=== PATIENT | male | born 1960 | race Caucasian/White ===

== ENCOUNTER 2016-11-09 09:31 | Emergency (ER) | payer OTHER, MEDICARE ==
[~2016-11-09 09:31] MED LIST: ALPRAZOLAM0.5 M3 PO; ALPRAZOLAM0.5 M4 PO; ATORVASTATIN CA20 MG PO; BENTYL20 M1 PO; CYCLOBENZAPRINE10 M1 PO; Ecotrin PO; FLOMAX0.4 M1 PO; FUROSEMIDE40 M1 PO; GEMFIBROZIL600 MG PO; IBU800 MG PO; KEFLEX500 M1 PO; LOPRESSOR 12.12.5 MG PO; METFORMIN HCL500 M3 PO; MONTELUKAST SOD10 MG PO; MOTRIN800 MG PO; NEXIUM 40MG40 MG PO; OXYCODONE-ACETAMINOP PO; PERCOCET 325 MG1 TA2 PO; PERCOCET 325 MG1 TAB PO; TAMSULOSIN HYD0.4 MG PO
[2016-11-09] MEDS ORDERED: GEMFIBROZIL600 M1 PO (09:47)
[2016-11-09] MEDS ORDERED: METOPROLOL TART25 M1 PO (09:50)
--- NOTE | 2016-11-09 09:54 | ED ANKLE/FOOT INJURY COMPLAINT ---
History of Present Illness General Chief Complaint: Foot or Ankle Injury Stated Complaint: LFT FOOT PAIN/NO KNOWN INJURY Source: patient Exam Limitations: no limitations Vital Signs & Intake/Output Vital Signs & Intake/Output Vital Signs Date Time Temp Pulse Resp B/P B/P Pulse O2 O2 Flow FiO2 Mean Ox Delivery Rate 11/09 0941 98.1 93 18 132/82 95 Room Air Allergies Coded Allergies: NO KNOWN ALLERGIES (07/02/13) Reconcile Medications Furosemide 40 MG TABLET 1 TAB PO DAILY FLUID RETENTION (Reported) Gemfibrozil 600 MG TABLET 1 TAB PO BID CHOLESTEROL (Reported) Indomethacin 25 MG CAPSULE 1 CAP PO TID PRN PAIN/INFLAMMATION with food Metformin HCl 500 MG TABLET 1 TAB PO BID DM (Reported) Metoprolol Tartrate 25 MG TABLET 0.5 TAB PO BID HTN (Reported) Tamsulosin HCl (Flomax) 0.4 MG CAP.ER.24H 1 CAP PO DAILY urinary Triage Note: PT NOTICED LT FOOT PAIN YESTERDAY WHEN HE WOKE UP. STATES IT FELT LIKE A BALL ON THE BOTTOM OF HIS FOOT. NO SWELLING NOTED, DENIES ANY REDNESS, PAINFUL TO WALK ON. Triage Nurses Notes Reviewed? yes Occurred: yesterday Duration: day(s): (2) Timing: no prior history Severity: moderate Severity Numbers: 7 Pain/Injury Location: Left: Foot. Method of Injury: unknown Modifying Factors: Improves With: immobilization. Worsens With: movement. HPI: Patient is a 56-year-old male presenting to the emergency department complaining of left thigh pain that began yesterday. No known injury. Penis sharp and stabbing and is located in the ball of his left foot and also on the dorsum of the left foot. No numbness or tingling. Remote history of breaking that foot in the past. Denies any new footwear. Pain is worse with ambulation and movement. Denies taking any symptoms. Denies any other pain. No calf pain. Denies any leg swelling. Past History Travel History Traveled to [place] past 21 day No Medical History Any Pertinent Medical History? see below for history Neurological: NONE EENT: NONE Cardiovascular: hypertension, hyperlipidemia Respiratory: obstructive sleep apnea Gastrointestinal: NONE Hepatic: NONE Renal: NONE Musculoskeletal: chronic back pain, disk herniation, osteoarthritis Psychiatric: NONE Endocrine: diabetes Blood Disorders: NONE Cancer(s): BREAST BILATERL NIPPLES History of MRSA: No History of VRE: No History of CDIFF: No Surgical History Surgical History: non-contributory Psychosocial History What is your primary language Japanese Tobacco Use: Quit >30 days ago Family History Family History, If Any: MOTHER FHx: heart failure grand mother FHx: heart failure Hx Contributory? No Review of Systems Review of Systems Constitutional: Reports: no symptoms. Comments Review of systems: See HPI, All other systems negative. Constitutional, no chills fever or weight loss HEENT: No visual changes no sore throat no congestion Cardiovascular: No chest pain ,palpitation , orthopnea or ankle swelling Skin, no jaundice no rashes Respiratory: No dyspnea cough sputum GI: No nausea no vomiting Muscle skeletal: no back pain, no neck pain, Neurologic: No numbness no confusion NO MENESES Psych: No stress anxiety or depression,. Heme/endocrine: No bruising no bleeding no polyuria or polydipsia Immunology: No splenectomy or history of AIDS Physical Exam Physical Exam General Appearance: well developed/nourished, no apparent distress, alert, awake , comfortable Leg/Knee/Thigh Left: normal range of motion, normal inspection Comments: Well-developed well-nourished person in no acute distress HEENT:Pupils equally round and reactive to light and accommodation. Nose is atraumatic. Neck: Normal inspection Cardiovascular: Capillary refills intact in lower extremity bilaterally Respiratory: No respiratory distress. Extremity: No edema, no calf tenderness to palpation, normal and equal pulses. Tender to palpation over the dorsum of the left foot, no obvious erythema edema ecchymosis or signs of trauma appreciated. Mild tenderness to palpation over the ball of the left foot swelled. No pain to palpation over the Achilles tendon on the left lower extremity. Able to move all toes without difficulty. No ankle tenderness to palpation, left lower extremity. Neuro: Alert oriented x3, motor sensory normal Skin: No appreciable rash on exposed skin, skin is warm and dry. Psych: Mood and affect is normal, memory and judgment is normal. Progress Differential Diagnosis: gout, fracture, dislocation, sprain, contusion Plan of Care: Orders Procedure Date/time Status XRY-FOOT COMPLETE, LEFT 11/09 953 Active Current Medications Sig/Cesilia Start time Last Medication Dose Stop Time Status Admin Ketorolac 30 MG ONCE ONE 11/09 1000 AC Tromethamine 11/09 1001 (Toradol) Diagnostic Imaging: Viewed by Me: Radiology Read. Discussed w/RAD: Radiology Read. Radiology Impression: PATIENT: RONALDO MONTEZ PRESENT AGE: 56 PATIENT ACCOUNT NO: [id number] : 60 LOCATION: [facility] ORDERING PHYSICIAN: PAO BURKETT SERVICE DATE: 11/09/16 EXAM TYPE: RAD - XRY-FOOT COMPLETE, LEFT EXAMINATION: XR FOOT, LEFT CLINICAL INFORMATION: Pain. Evaluate for stress fracture. COMPARISON: None TECHNIQUE: AP, lateral, and oblique views of the left foot. FINDINGS: Normal bony mineralization. No definite evidence of acute fracture or dislocation. Degenerative changes first MTP joint and multiple interphalangeal joints. Larger osteophyte noted along the lateral aspect base of the proximal phalanx. Linear ossific/calcific density noted dorsal to the interphalangeal joints noted on the lateral radiograph. No definite evidence of stress fracture identified. Inferior and posterior calcaneal spurs. Mild soft tissue swelling noted in the foot. IMPRESSION: 1. No acute osseous abnormality appreciated. If continued clinical concern, MRI may be of greater value. 2. Degenerative changes. 3. Soft tissue swelling. DICTATED BY: ABEL GRANADO MD DATE/TIME DICTATED:11/09/161054 APPLICATIONS SYSTEMS ENGINEER:JOSE DATE/TIME TRANSCRIBED:11/09/161054 CONFIDENTIAL, DO NOT COPY WITHOUT APPROPRIATE AUTHORIZATION. <Electronically signed in Other Vendor System> SIGNED BY: ABEL GRANADO MD 11/09/16 1101 Comments: Patient was medicated with IM Toradol on arrival. He reports it is improving slightly. Still painful to weight-bear. He does not want crutches. He was informed of x-ray results. Considering questionable early gout. No history of similar in the past. Patient denies any alcohol use or excessive seafood intake. Patient will be started on Indocin, Quirino wrap placed. He'll follow-up with orthopedic symptoms persist. Patient nontoxic. Departure Departure Time of Disposition: 1107 Disposition: HOME OR SELF CARE Condition: Stable Clinical Impression Primary Impression: Foot pain Qualifiers: Laterality: left Qualified Code: M79.672 - Pain in left foot Referrals: GALILEO ALVARADO,CAL Betancourt (PCP/Family) MARCELLUS ARELLANO MD Additional Instructions: Follow-up with the orthopedic call to make an appointment. Rest ice and elevate. Take anti-inflammatory as prescribed. Use Quirino wrap for support. Return for worsening symptoms or concerns. Departure Forms: Customer Survey General Discharge Information Prescriptions: Current Visit Scripts Indomethacin 1 CAP PO TID PRN PAIN/INFLAMMATION #15 CAP with food
--- NOTE | 2016-11-09 11:01 | RADIOLOGY REPORT ---
EXAMINATION: XR FOOT, LEFT CLINICAL INFORMATION: Pain. Evaluate for stress fracture. COMPARISON: None TECHNIQUE: AP, lateral, and oblique views of the left foot. FINDINGS: Normal bony mineralization. No definite evidence of acute fracture or dislocation. Degenerative changes first MTP joint and multiple interphalangeal joints. Larger osteophyte noted along the lateral aspect base of the proximal phalanx. Linear ossific/calcific density noted dorsal to the interphalangeal joints noted on the lateral radiograph. No definite evidence of stress fracture identified. Inferior and posterior calcaneal spurs. Mild soft tissue swelling noted in the foot. IMPRESSION: 1. No acute osseous abnormality appreciated. If continued clinical concern, MRI may be of greater value. 2. Degenerative changes. 3. Soft tissue swelling.
[2016-11-09] MEDS ORDERED: INDOMETHACIN25 M1 PO (11:14)
[2016-11-09 11:27] VITALS: BP 130/80
== END 2016-11-09 11:28 ==
LOC: ERH 09:31
DX: M79.672 Pain in left foot (principal)
CPT/HCPCS: 73630-LT; 96372; J1885

== ENCOUNTER 2016-11-21 21:44 | Emergency (ER) | payer OTHER, MEDICARE ==
[~2016-11-21 21:44] MED LIST changes: +GEMFIBROZIL600 M1 PO; +INDOMETHACIN25 M1 PO; +METOPROLOL TART25 M1 PO
--- NOTE | 2016-11-21 21:58 | ED GI/GU/ABDOMINAL COMPLAINT ---
History of Present Illness General Chief Complaint: Abdominal Pain/Flank Pain Stated Complaint: PER PT ?SWOLLEN ESOPHAGUS OR STOMACH BLOCKAGE Source: patient Exam Limitations: no limitations Vital Signs & Intake/Output Vital Signs & Intake/Output Vital Signs Date Time Temp Pulse Resp B/P B/P Pulse O2 O2 Flow FiO2 Mean Ox Delivery Rate 11/22 0002 97.8 89 19 120/79 95 Room Air 11/21 2149 97.0 90 20 118/78 94 Allergies Coded Allergies: NO KNOWN ALLERGIES (07/02/13) Reconcile Medications Furosemide 40 MG TABLET 1 TAB PO DAILY FLUID RETENTION (Reported) Furosemide (Lasix) 40 MG TABLET 1 TAB PO DAILY EDEMA Gemfibrozil 600 MG TABLET 1 TAB PO BID CHOLESTEROL (Reported) Indomethacin 25 MG CAPSULE 1 CAP PO TID PRN PAIN/INFLAMMATION with food Metformin HCl 500 MG TABLET 1 TAB PO BID DM (Reported) Metoprolol Tartrate 25 MG TABLET 0.5 TAB PO BID HTN (Reported) Omeprazole Magnesium (Prilosec Otc) 20 MG TABLET.DR 1 TAB PO DAILY GERD Tamsulosin HCl (Flomax) 0.4 MG CAP.ER.24H 1 CAP PO DAILY urinary Triage Note: PER PT GETTING MORE DIFFICULT TO SWALLOW FOOD X COUPLE OF WEEKS, STOMACH TWITED. NO RESP DISTRESS IN TRIAGE. Triage Nurses Notes Reviewed? yes Duration: constant Timing: recent history Quality/Severity: fullness, moderate Severity Numbers: 5 Radiation: no radiation Activities at Onset: eating HPI: Patient is a 56-year-old male with a past medical history of hypertension hyperlipidemia, chronic back pain, obstructive sleep apnea and bilateral breast cancer with mastectomy in remission who presents to emergency room with concerns of a 6-8 week history of difficulty swallowing solid foods. Patient states that he always needs to drink liquids to avoid choking after ingestion of solid food Patient has had a few episodes of vomiting last episode was yesterday. Patient today was able to tolerate Last bowel movement was today no blood no melena noted. Patient also is concerned of left-sided neck swelling and is concerned of recurrence of cancer. Denies any night sweats fever chills weight loss or difficulty breathing chest pain arm pain jaw pain Patient denies any abdominal pain (ARMIN MCDONALD) Past History Travel History Traveled to [place] past 21 day No Medical History Any Pertinent Medical History? see below for history Neurological: NONE EENT: NONE Cardiovascular: hypertension, hyperlipidemia Respiratory: obstructive sleep apnea Gastrointestinal: NONE Hepatic: NONE Renal: NONE Musculoskeletal: chronic back pain, disk herniation, osteoarthritis Psychiatric: NONE Endocrine: diabetes Blood Disorders: NONE Cancer(s): BREAST BILATERL NIPPLES History of MRSA: No History of VRE: No History of CDIFF: No Surgical History Surgical History: non-contributory Psychosocial History What is your primary language Vietnamese Tobacco Use: Quit >30 days ago Family History Family History, If Any: MOTHER FHx: heart failure grand mother FHx: heart failure Hx Contributory? No (ARMIN MCDONALD) Review of Systems Review of Systems Constitutional: Reports: no symptoms. EENTM: Reports: see HPI. Respiratory: Reports: no symptoms. Cardiovascular: Reports: no symptoms. GI: Reports: see HPI, vomiting. Genitourinary: Reports: no symptoms. Musculoskeletal: Reports: no symptoms. Skin: Reports: no symptoms. Neurological/Psychological: Reports: no symptoms. Hematologic/Endocrine: Reports: no symptoms. Immunologic/Allergic: Reports: no symptoms. All Other Systems: Reviewed and Negative (ARMIN MCDONALD) Physical Exam Physical Exam General Appearance: no apparent distress, obese Gastrointestinal: normal bowel sounds, soft, non-tender, no organomegaly Comments: HEENT: Normal EENT exam, Pharynx normal. No swelling or edema. Neck: Supple, normal inspection, no swelling noted no adenopathy noted full active range of motion noted Back: Nontender, no CVA tenderness. Cardiovascular: Regular rate and rhythms no murmurs rubs or gallops, normal JVP Respiratory: Chest nontender. No respiratory distress.breath sounds clear to auscultation bilaterally Abdomen: Soft, nontender nondistended, no appreciable organomegaly. Normal bowel sounds. No ascites Extremity: No edema, no calf tenderness to palpation, normal and equal pulses. Neuro: Alert oriented x3, motor sensory normal, Skin: No appreciable rash on exposed skin, skin is warm and dry. Psych: Mood and affect is normal, memory and judgment is normal. Core Measures ACS in differential dx? No Severe Sepsis Present: No Septic Shock Present: No (ARMIN MCDONALD) Progress Differential Diagnosis: AAA, AMI, appendicitis, biliary colic, bowel obstruction , colon cancer, cholecystitis, diverticulitis, epididymitis, esophageal varices, gastritis, hepatitis, hernia, hemorrhoids, ischemic bowel, inflamm bowel dis, Stacey-Isrrael tear, orchitis, pancreatitis, prostatitis, peptic ulcer, PUD/GERD, perforated viscous, pyelonephritis, SBO, STD, testicular torsion, ureterolithiasis, urinary retention, urethritis, UTI/pyelo Plan of Care: Orders Procedure Date/time Status LIPASE 11/21 2209 Complete COMPREHENSIVE METABOLIC PANEL 11/21 2209 Complete CBC WITHOUT DIFFERENTIAL 11/21 2209 Complete AMYLASE 11/21 2209 Complete Laboratory Tests 11/21/162219: Anion Gap 11, Estimated GFR 57 L, BUN/Creatinine Ratio 16.2, Glucose 158 H, Calcium 9.1, Total Bilirubin 0.3, AST 17, ALT 27, Alkaline Phosphatase 92, Total Protein 6.9, Albumin 4.3, Globulin 2.6, Albumin/Globulin Ratio 1.7, Amylase 41, Lipase 104, CBC w Diff NO MAN DIFF REQ, RBC 4.74, MCV 89.6, MCH 29.4, RDW 14.6 H, MPV 8.4, Gran % 69.5, Lymphocytes % 19.7 L, Monocytes % 8.7, Eosinophils % 1.9, Basophils % 0.2, Absolute Granulocytes 8.9 H, Absolute Lymphocytes 2.5, Absolute Monocytes 1.1 H, Absolute Eosinophils 0.2, Absolute Basophils 0, PUBS MCHC 32.8 L Patient on initial examination was in no apparent distress and was able to tolerate by mouth water with no dysphasia and no exacerbation of symptoms. Patient had unremarkable CT scan findings Patient was able to tolerate by mouth upon discharge Patient was strongly advised to follow-up with his GI appointment as he had one last week however he stated that he could not make it. Patient also requested refills of his Lasix and which she takes 40 mg once a day. Patient was strongly advised to begin PPI regiment I discussed all blood work and CT scan findings with patient and advised patient to begin drinking plenty of water and soft diet to avoid worsening choking episodes (ARMIN MCDONALD) Diagnostic Imaging: Viewed by Me: CT Scan. Radiology Impression: no acute abnormality, no fracture Initial ED EKG: none (ARMIN MCDONALD) Departure Departure Disposition: HOME OR SELF CARE Condition: Stable Clinical Impression Primary Impression: Dysphagia Referrals: GALILEO ALVARADO,CAL Betancourt (PCP/Family) Additional Instructions: As discussed begin the prescription of Prilosec as directed for your symptoms. Begin the prescription of Lasix Perceptions are waiting a [facility] [place]. Follow-up with your establish gastroenterology appointment with . Begin a soft diet and plenty of water for hydration. If symptoms worsen return to emergency room continue all medications as directed Departure Forms: Customer Survey General Discharge Information Prescriptions: Current Visit Scripts Omeprazole Magnesium (Prilosec Otc) 1 TAB PO DAILY #30 TAB Furosemide (Lasix) 1 TAB PO DAILY #20 TAB (ARMIN MCDONALD) PA/PRACTICAL NURSING INSTRUCTOR Co-Sign Statement Statement: ED Attending supervision documentation- [] I saw and evaluated the patient. I have also reviewed all the pertinent lab results and diagnostic results. I agree with the findings and the plan of care as documented in the PA's/PRACTICAL NURSING INSTRUCTOR's documentation. [x] I have reviewed the ED Record and agree with the PA's/PRACTICAL NURSING INSTRUCTOR's documentation. [] Additions or exceptions (if any) to the PAs/PRACTICAL NURSING INSTRUCTOR's note and plan are summarized below: [] (RAIN ALVARADO,EUGENE Irving)
[2016-11-21 22:33] LABS: ABSOLUTE BASOPHIL COUNT 0 /CUMM (0.0-0.2); ABSOLUTE EOSINOPHIL COUNT 0.2 /CUMM (0.0-0.7); ABSOLUTE GRANULOCYTE CT 8.9 /CUMM (1.4-6.5); ABSOLUTE LYMPH COUNT 2.5 /CUMM (1.2-3.4); ABSOLUTE MONOCYTE COUNT 1.1 /CUMM (0.10-0.60); BASOPHIL % 0.2 % (0.0-2.0); EOSINOPHIL % 1.9 % (0-5); GRANULOCYTE % 69.5 % (42.2-75.2); HEMATOCRIT 42.5 % (42-52); MEAN CORPUSCULAR HGB 29.4 PG (27.0-31.0); MEAN CORPUSCULAR HGB CONC 32.8 G/DL (33.0-37.0); MEAN CORPUSCULAR VOLUME 89.6 FL (80.0-94.0); MEAN PLATELET VOLUME 8.4 FL (7.4-10.4); PLATELET COUNT 249 /CUMM (130-400); RBC DISTRIBUTION WIDTH 14.6 % (11.5-14.5); RED BLOOD CELL CT 4.74 /CUMM (4.70-6.10); WHITE BLOOD CELL COUNT 12.8 /CUMM (4.8-10.8)
--- NOTE | 2016-11-21 23:37 | CT SCAN REPORT ---
EXAMINATION: CT NECK WITH CONTRAST CLINICAL INFORMATION: Dx: DYSPHAGIA/ODYNOPHAGIA, HX CANCER Signs Symptoms: R/O ANATOMICAL ETIOLOGY COMPARISON: None TECHNIQUE: IV contrast injected. 95 mL Optiray 320. Axial images obtained through the neck. Coronal and sagittal reformatted images performed at CT scanner DLP: 553.98 mGy-cm FINDINGS: No mass or significant lymphadenopathy of the neck. Nasopharynx, pharynx and hypopharynx and proximal trachea are unremarkable. The thyroid, submandibular gland and parotid glands are normal. No abnormal enhancing lesion. No inflammatory changes or fluid collections. The orbits, paranasal sinuses are unremarkable. Normal intracranial structures are partially visualized. Lung apices are clear. Superior mediastinum normal. There is degenerative disc disease of cervical spine with disc height narrowing and endplate spurs from C3-C4 to C7-T1. IMPRESSION: No acute abnormality CT of the neck. No mass or significant adenopathy.
[2016-11-21] MEDS ORDERED: PRILOSEC OTC20 M1 PO (23:54)
[2016-11-21] MEDS ORDERED: LASIX40 M1 PO (23:54)
[2016-11-22 00:02] VITALS: BP 120/79
== END 2016-11-22 00:02 ==
LOC: ERH 21:44
PROVIDERS: Physician Assistant
DX: R13.10 Dysphagia, unspecified (principal); R22.1 Localized swelling, mass and lump, neck

== ENCOUNTER 2016-12-26 19:02 | Emergency (ER) | payer OTHER, MEDICARE ==
[~2016-12-26] VITALS: Ht 175.3 cm; Wt 157.4 kg
[~2016-12-26 19:02] MED LIST changes: +LASIX40 M1 PO; +PRILOSEC OTC20 M1 PO
--- NOTE | 2016-12-26 20:04 | ED GI/GU/ABDOMINAL COMPLAINT ---
History of Present Illness General Chief Complaint: Abdominal Pain/Flank Pain Stated Complaint: ABD PAIN/ TROUBLE SWALLOWING Source: patient Exam Limitations: no limitations Vital Signs & Intake/Output Vital Signs & Intake/Output Vital Signs Date Time Temp Pulse Resp B/P B/P Pulse O2 O2 Flow FiO2 Mean Ox Delivery Rate 12/27 0003 96.8 88 20 150/88 95 Room Air ED Intake and Output 12/27 0000 12/26 1200 Intake Total 0 Output Total Balance 0 Intake, Oral 0 Patient 347 lb Weight Weight Standing Scale Measurement Method Allergies Coded Allergies: NO KNOWN ALLERGIES (07/02/13) Reconcile Medications Alprazolam 0.5 MG TABLET 1 TAB PO AD PRN ANXIETY (Reported) Gemfibrozil 600 MG TABLET 1 TAB PO BID CHOLESTEROL (Reported) Metformin HCl 500 MG TABLET 1 TAB PO BID DM (Reported) Metoprolol Tartrate 25 MG TABLET 0.5 TAB PO BID HTN (Reported) Tamsulosin HCl (Flomax) 0.4 MG CAP.ER.24H 1 CAP PO DAILY KIDNEY STONE Triage Note: 56M WITH MULTIPLE GI COMPLAINTS AND SEEN 12/21 FOR SAME. UNABLE TO GET IN WITH GI SPECIALIST. RX'S ACID REFLUX MED WHICH HE DID NOT TAKE. FEELS THAT WHEN HE SWALLOWS THE FOOD SITS IN THROAT/ESOPHAGUS. UNABLE TO KEEP MUCH FLUID OR FOOD DOWN. SPEAKS IN FULL SENTENCES WITHOUT ISSUE, NO SALIVATION OR CHOKING NOTED. IS ABLE TO DRINK COFFEE, BUT UNABLE TO EAT AFTER. ENDORSES PAIN AND SPONTANEOUS REGURGITATION X 2 WEEKS. HAD ESOPHAGEAL MRI LAST VISIT. ALSO C/O RIGHT ARM REDNESS/RASH. HX BREAST CA WITH BILAT MASTECTOMY Triage Nurses Notes Reviewed? yes Duration: constant Timing: recent history Quality/Severity: moderate Severity Numbers: 5 Location: left upper quadrant Radiation: no radiation Activities at Onset: eating Prior Abdominal Problems: none HPI: Patient is a 56-year-old male with a past medical history of bilateral breast cancer with mastectomy 3 years ago currently in remission, hypertension, hyperlipidemia diabetes and GERD who was evaluated here on 11/21/2016 for similar complaints as stated stay when he's been complaining of a 3 month history of worsening difficulty swallowing solid foods. Patient can swallow liquids however. Patient received CT scan of the neck from previous visit with unremarkable findings and blood work was unremarkable. Patient had requested medications for his extremity swelling in which she was administered Lasix and was advised to begin Prilosec for concerns at the time of reflux however he states that he has not picked up this medication patient also is strongly advised at that time from last emergency room visit 5 weeks ago to follow up with gastroenterology which she has not. Patient states that he's lost approximately 15 pounds due to not eating solid foods. Denies any fever chills night sweats constipation chest pain arm pain jaw pain nausea or vomiting. Patient is complaining of left upper quadrant chronic pain and swelling. As bowel movement was today no blood no melena noted (ARMIN MDCONALD) Past History Travel History Traveled to [place] past 21 day No Medical History Any Pertinent Medical History? see below for history Neurological: NONE EENT: NONE Cardiovascular: hypertension, hyperlipidemia Respiratory: obstructive sleep apnea Gastrointestinal: NONE Hepatic: NONE Renal: NONE Musculoskeletal: chronic back pain, disk herniation, osteoarthritis Psychiatric: NONE Endocrine: diabetes Blood Disorders: NONE Cancer(s): BREAST BILATERL NIPPLES History of MRSA: No History of VRE: No History of CDIFF: No Surgical History Surgical History: non-contributory Psychosocial History What is your primary language [place]ican Tobacco Use: Never used ETOH Use: denies use Illicit Drug Use: denies illicit drug use Family History Family History, If Any: MOTHER FHx: heart failure grand mother FHx: heart failure Hx Contributory? No (ARMIN MCDONALD) Review of Systems Review of Systems Constitutional: Reports: no symptoms. EENTM: Reports: no symptoms. Respiratory: Reports: no symptoms. Cardiovascular: Reports: no symptoms. GI: Reports: see HPI, abdominal pain. Genitourinary: Reports: no symptoms. Musculoskeletal: Reports: no symptoms. Skin: Reports: no symptoms. Neurological/Psychological: Reports: no symptoms. Hematologic/Endocrine: Reports: no symptoms. Immunologic/Allergic: Reports: no symptoms. All Other Systems: Reviewed and Negative (ARMIN MCDONALD) Physical Exam Physical Exam General Appearance: no apparent distress, alert, awake, obese Gastrointestinal: normal bowel sounds, soft, LEFT UPPER QUADRANT PAIN NO REBOUND SIGNS Comments: Well-developed well-nourished person in no acute distress HEENT: Normal EENT exam Neck: Supple, no lymphadenopathy, normal range of motion without pain or tenderness Back: Nontender, no CVA tenderness. Cardiovascular: Regular rate and rhythms no murmurs rubs or gallops, normal JVP Respiratory: Chest nontender. No respiratory distress.breath sounds clear to auscultation bilaterally Extremity: No edema, no calf tenderness to palpation, normal and equal pulses. Neuro: Alert oriented x3, motor sensory normal, Skin: No appreciable rash on exposed skin, skin is warm and dry. Psych: Mood and affect is normal, memory and judgment is normal. Core Measures ACS in differential dx? No Severe Sepsis Present: No Septic Shock Present: No (CARL BURKETT,ARMIN) Progress Differential Diagnosis: AAA, AMI, appendicitis, biliary colic, bowel obstruction , colon cancer, cholecystitis, diverticulitis, epididymitis, esophageal varices, gastritis, hepatitis, hernia, hemorrhoids, ischemic bowel, inflamm bowel dis, Stacey-Isrrael tear, orchitis, pancreatitis, prostatitis, peptic ulcer, PUD/GERD, perforated viscous, pyelonephritis, SBO, STD, testicular torsion, ureterolithiasis, urinary retention, urethritis, UTI/pyelo Plan of Care: Orders Procedure Date/time Status Add-on Test (ER Only) 12/26 2355 Active CULTURE,URINE 12/26 2332 Active URINALYSIS 12/26 2250 Complete Laboratory Tests 12/26/16 2332: Urinalysis LIGHT H, Urine Color YEL, Urine Clarity HAZY H, Urine pH 6.0, Ur Specific Stephenson >= 1.030, Urine Protein 30 H, Urine Ketones NEG, Urine Nitrite NEG, Urine Bilirubin SMALL H, Urine Urobilinogen 0.2, Ur Leukocyte Esterase TRACE H, Ur Microscopic SEDIMENT EXAMINED, Urine RBC 15-25 H, Urine WBC 5-10 H, Ur Epithelial Cells FEW, Urine Bacteria FEW H, Urine Mucus FEW, Urine Hemoglobin LARGE H, Urine Glucose NEG Microbiology 12/26 2332 URINE ROUT: Urine Culture - RECD Patient on initial examination was in no apparent distress. I strongly advised patient to follow up with gastroenterology for evaluation of his chronic dysphasia to into possible receive endoscopy and barium swallow test. Patient was able to tolerate by mouth liquids in the emergency room. Patient persistently wanted his abdomen imaged for concerns of cancer or hernia in which a CT was ordered patient has no" lower quadrant pain no peritoneal signs. Afebrile. I discussed with patient the risks of CT scan for patient's symptoms in which he was aware Again patient was in no apparent distress I review CT scan with patient in which she was only complaining of left upper quadrant pain however there is concern of a kidney stone to the left UVJ near the bladder. Discussed results with patient who would was advised to follow-up with urology and gastroenterology for his symptoms. Patient again was able tolerate by mouth upon discharge patient looks well no apparent distress and will comply with discharge instructions and had no questions. (CARL BURKETT,ARMIN) Diagnostic Imaging: Viewed by Me: CT Scan. Radiology Impression: SEE COMMENTS Initial ED EKG: none Comments: PATIENT: RONALDO MONTEZ PRESENT AGE: 56 PATIENT ACCOUNT NO: [id number] : 60 LOCATION: [facility] ORDERING PHYSICIAN: ARMIN BURKETT SERVICE DATE: 12/26/16 EXAM TYPE: CAT - CT ABD & PELVIS W/O IV CONTRAS EXAMINATION: CT ABDOMEN AND PELVIS WITHOUT CONTRAST CLINICAL INFORMATION: Left upper quadrant pain. COMPARISON: None TECHNIQUE: Multidetector volumetric imaging was performed from the superior aspect of the liver through the pubic symphysis. Sagittal and coronal reformatted images were obtained on the technologist's workstation. DLP: 1554.97 mGy-cm FINDINGS: LUNG BASES: The visualized lung bases are unremarkable. LIVER, GALLBLADDER, AND BILIARY TREE: Diffuse low attenuation of liver parenchyma due to fatty change. No focal liver lesion. No intrahepatic bile duct dilatation. Right lobe liver measures 21 cm superior inferior. The gallbladder is unremarkable with no evidence of radiopaque gallstones, gallbladder wall thickening, or obvious pericholecystic inflammatory changes. PANCREAS: Fatty atrophy of pancreas. SPLEEN: Small coarse calcification in the upper spleen ADRENAL GLANDS: Unremarkable. BLADDER/KIDNEYS AND URETERS: 5 mm stone in the upper pole of left kidney and a 1 mm stone lower pole left kidney. No stone in right kidney. There is a 2 x 4 mm stone at the right ureterovesical junction in the bladder, axial image 692 (3). No hydronephrosis. GASTROINTESTINAL TRACT: The small and large bowel are unremarkable. The appendix is unremarkable. Small hiatal hernia. ABDOMINAL WALL: Bilateral fat-containing inguinal hernias. LYMPH NODES: Normal. VASCULAR: Unremarkable. PELVIC VISCERA: Unremarkable. OSSEOUS STRUCTURES: Degenerative spondylosis of spine with endplate spurring and bridging osteophytes of the lower thoracic upper lumbar spine. Nonbridging osteophytes of lumbar spine. Multilevel facet joint arthrosis most significant at lower lumbar spine. No spondylolysis or spondylolisthesis. IMPRESSION: 1. There is a 2 x 4 mm stone at right ureterovesical junction in the bladder. No hydronephrosis. 2. There are 2 Nonobstructive left renal calculi. DICTATED BY: ADWOA RAM MD DATE/TIME DICTATED:12/26/162230 RANGE FEEDER:JOSE DATE/TIME TRANSCRIBED:12/26/162230 (ARMIN MCDONALD) Departure Departure Disposition: HOME OR SELF CARE Clinical Impression Primary Impression: Dysphagia Referrals: MITCH ALVARADO,SY MENDOZA MD,BABS GURROLA MD,CAL Betancourt (PCP/Family) Additional Instructions: As discussed tomorrow please follow-up with urologist Dr. PABLO'zenobia for further evaluation treatment. Follow-up tomorrow with paint coating machine operator Dr. MENDOZA for further evaluation treatment. Begin [id number] Motrin and/or Tylenol for pain. Begin the prescription of Flomax for your symptoms. If symptoms worsen or if you develop a new concerning symptom return to emergency room immediately. Begin a soft liquid diet and plenty of water for hydration. Departure Forms: Customer Survey General Discharge Information Prescriptions: Current Visit Scripts Tamsulosin HCl (Flomax) 1 CAP PO DAILY #20 CAP (ARMIN MCDONALD) Departure Condition: Stable PA/TREATMENT COORDINATOR Co-Sign Statement Statement: ED Attending supervision documentation- [] I saw and evaluated the patient. I have also reviewed all the pertinent lab results and diagnostic results. I agree with the findings and the plan of care as documented in the PA's/TREATMENT COORDINATOR's documentation. [X] I have reviewed the ED Record and agree with the PA's/TREATMENT COORDINATOR's documentation. [] Additions or exceptions (if any) to the PAs/TREATMENT COORDINATOR's note and plan are summarized below: [] (RAIN ALVARADO,EUGENE Irving) PA/TREATMENT COORDINATOR Co-Sign Statement Statement: ED Attending supervision documentation- [] I saw and evaluated the patient. I have also reviewed all the pertinent lab results and diagnostic results. I agree with the findings and the plan of care as documented in the PA's/TREATMENT COORDINATOR's documentation. [X] I have reviewed the ED Record and agree with the PA's/TREATMENT COORDINATOR's documentation. [] Additions or exceptions (if any) to the PAs/TREATMENT COORDINATOR's note and plan are summarized below: [] (MATTHEW ALVARADO,AISHA)
[2016-12-26] MEDS ORDERED: ALPRAZOLAM0.5 M4 PO (20:45)
--- NOTE | 2016-12-26 22:43 | CT SCAN REPORT ---
EXAMINATION: CT ABDOMEN AND PELVIS WITHOUT CONTRAST CLINICAL INFORMATION: Left upper quadrant pain. COMPARISON: None TECHNIQUE: Multidetector volumetric imaging was performed from the superior aspect of the liver through the pubic symphysis. Sagittal and coronal reformatted images were obtained on the technologist's workstation. DLP: 1554.97 mGy-cm FINDINGS: LUNG BASES: The visualized lung bases are unremarkable. LIVER, GALLBLADDER, AND BILIARY TREE: Diffuse low attenuation of liver parenchyma due to fatty change. No focal liver lesion. No intrahepatic bile duct dilatation. Right lobe liver measures 21 cm superior inferior. The gallbladder is unremarkable with no evidence of radiopaque gallstones, gallbladder wall thickening, or obvious pericholecystic inflammatory changes. PANCREAS: Fatty atrophy of pancreas. SPLEEN: Small coarse calcification in the upper spleen ADRENAL GLANDS: Unremarkable. BLADDER/KIDNEYS AND URETERS: 5 mm stone in the upper pole of left kidney and a 1 mm stone lower pole left kidney. No stone in right kidney. There is a 2 x 4 mm stone at the right ureterovesical junction in the bladder, axial image 692 (3). No hydronephrosis. GASTROINTESTINAL TRACT: The small and large bowel are unremarkable. The appendix is unremarkable. Small hiatal hernia. ABDOMINAL WALL: Bilateral fat-containing inguinal hernias. LYMPH NODES: Normal. VASCULAR: Unremarkable. PELVIC VISCERA: Unremarkable. OSSEOUS STRUCTURES: Degenerative spondylosis of spine with endplate spurring and bridging osteophytes of the lower thoracic upper lumbar spine. Nonbridging osteophytes of lumbar spine. Multilevel facet joint arthrosis most significant at lower lumbar spine. No spondylolysis or spondylolisthesis. IMPRESSION: 1. There is a 2 x 4 mm stone at right ureterovesical junction in the bladder. No hydronephrosis. 2. There are 2 Nonobstructive left renal calculi.
[2016-12-26] MEDS ORDERED: FLOMAX0.4 M1 PO (23:53)
[2016-12-27 00:03] VITALS: BP 150/88
== END 2016-12-27 00:06 ==
LOC: ERH 19:02
DX: R13.10 Dysphagia, unspecified (principal)
CPT/HCPCS: 74176; 81001; 87086

== ENCOUNTER 2017-12-15 16:01 | Emergency (ER) | payer OTHER, MEDICARE ==
[~2017-12-15 16:01] MED LIST changes: +CYCLOBENZAPRINE5 M2 PO; +LIDODERM1 EACH TOP; +OXYCODONE HCL10 M2 PO; +PERCOCET 5-3251 EACH PO
[2018-01-04] MEDS ORDERED: PROMETHAZINE HC25 M3 PO (15:15)
[2018-01-04] MEDS ORDERED: ZOFRAN4 M2 PO (15:15)
== END 2017-12-15 17:02 | disposition admitted as inpatient to this hospital (09) ==
LOC: ERH 16:01
DX: E86.0 Dehydration (principal)